=== PATIENT | female | born 1940 | race Caucasian/White ===

== ENCOUNTER 2023-06-30 21:33 | Emergency (ER) | payer MEDICARE ==
[~2023-06-30] VITALS: Ht 154.9 cm; Wt 49.0 kg
[2023-06-30] MEDS ORDERED: METO-356 PO (21:47)
[2023-06-30] MEDS ORDERED: APIX2.5T PO (21:47)
[2023-06-30] MEDS ORDERED: ATOR10TA PO (21:47)
[2023-06-30] MEDS ORDERED: CLON-418 PO (21:47)
[2023-06-30] MEDS ORDERED: CLONIDINE HCL 0.1 MG TABLET PO ONE (22:15)
[2023-06-30] MEDS ORDERED: CLONIDINE HCL 0.1 MG TABLET ONE (22:22)
[2023-06-30 22:49] LABS: CALCIUM 9.4 mg/dL (8.5-10.1); CARBON DIOXIDE 34 mmol/L (21-32); CHLORIDE 103 mmol/L (98-107); CREATININE 0.7 mg/dL (0.6-1.3); GLUCOSE 106 mg/dL (74-106); POTASSIUM 3.2 mmol/L (3.5-5.1); SODIUM SERUM 143 mmol/L (136-145); UREA NITROGEN, BLOOD 12 mg/dL (7-18)
[2023-06-30] MEDS ORDERED: POTASSIUM CHLORIDE 20 MEQ TAB.PRT.SR PO ONE (23:45)
[2023-06-30] MEDS ORDERED: CLON0.1T PO (23:46)
[2023-06-30] MEDS ORDERED: POTASSIUM CHLORIDE 20 MEQ TAB.PRT.SR ONE (23:52)
[2023-07-01 00:03] VITALS: BP 158/88; TEMP 98; O2SAT 96
== END 2023-07-01 00:05 | disposition home or self-care (01) ==
LOC: ER 21:36
DX: I16.0 Hypertensive urgency (principal); E87.6 Hypokalemia; E78.00 Pure hypercholesterolemia, unspecified; I48.91 Unspecified atrial fibrillation; Z79.899 Other long term (current) drug therapy
CPT/HCPCS: 36415; 84484; 93005; A4606; A4663